=== PATIENT | female | born 2000 | race Caucasian/White ===

== ENCOUNTER 2019-01-02 21:55 | Inpatient (IN) | payer MEDICAID, OTHER ==
[~2019-01-02] VITALS: Ht 149.9 cm; Wt 55.3 kg
[~2019-01-02 21:55] MED LIST: CYCL10TA7 PO; GUAI5SYR2 PO; IBUP-1541 PO; IBUP-1542 PO
[2019-01-02 22:39] VITALS: Ht 149.9 cm; Wt 55.3 kg
[2019-01-02] MEDS ORDERED: ONDANSETRON 4 MG INJ IV STA (23:01)
[2019-01-02] MEDS ORDERED: HYDROmorphONE 0.5 MG/0.5 ML SYG IV STA (23:01)
[2019-01-02] MEDS ORDERED: SOD CHLORIDE 0.9% 500 ML IV STA (23:01)
--- NOTE | 2019-01-02 23:14 | ERD ---
ER Documentation Chief Complaint Chief Complaint Pt reports pain in waves every 5 minutes, 2 pads per hour dizziness +preg HPI 18-year-old female with EGA 17 weeks by LMP 09/07/2019, presents to the emergency department, complaining of 3 days with worsening of vaginal bleeding, associated with cramping, colicky pelvic pain every 5 minutes. ROS All systems reviewed and are negative except as per history of present illness. Medications Home Meds Active Scripts Ibuprofen* (Ibuprofen*) 400 Mg Tablet, 400 MG PO Q6H PRN for PAIN for 4 Days, TAB Prov:KATHARINE SHAH NP 08/29/15 Guaifenesin-Dextromethorphan* (Robitussin* DM) 100MG/10MG/5ML Syrup, 10 ML PO Q4H PRN for COUGH for 3 Days, ML Prov:KATHARINE SHAH NP 08/29/15 Ibuprofen* (Ibuprofen*) 600 Mg Tablet, 600 MG PO Q6 for PAIN, #30 TAB Prov:LANG PIMENTEL PA-C 04/22/15 Cyclobenzaprine Hcl* (Cyclobenzaprine Hcl*) 10 Mg Tablet, 10 MG PO TID PRN for MUSCLE SPASMS, #30 TAB Prov:LANG PIMENTEL PA-C 04/22/15 Allergies Allergies: Coded Allergies: No Known Allergy (Unverified , 10/31/15) PMhx/Soc Medical and Surgical Hx: pt denies Medical Hx, pt denies Surgical Hx History of Surgery: No Anesthesia Reaction: No Hx Neurological Disorder: No Hx Respiratory Disorders: No Hx Cardiac Disorders: No Hx Psychiatric Problems: No Hx Miscellaneous Medical Probl: No Hx Alcohol Use: No Hx Substance Use: No Hx Tobacco Use: No Smoking Status: Never smoker Physical Exam Vitals Vital Signs Date Temp Pulse Resp B/P (MAP) Pulse Ox O2 O2 Flow FiO2 Time Delivery Rate 01/02/19 98.3 86 32 95/55 (68) 96 22:39 Physical Exam Patient alert, oriented, in distress due to pain vital signs stable. HEENT: Normocephalic, atraumatic. EYES: PERRLA, EOMI, Sclera and conjunctiva appear normal. EARS: Canals clear, tympanic membranes WNL. THROAT: Normal oropharynx. NECK: Supple, No lymphadenopathy. Full ROM without pain or tenderness. HEART: RRR, no rubs, murmurs, clicks or gallops. LUNGS: Clear to auscultation. ABDOMEN: Soft, uterus gravid. : Os 2 cm, with active moderate vaginal bleeding. EXTREMITIES: No edema bilaterally. BACK: Full ROM, no deformity, normal back exam NEURO: Cranial nerves grossly intact, no motor or sensory deficit SKIN: No rashes, no petechia. Result Diagram: 01/02/19 5760 Results 24 hrs Laboratory Tests Test 01/02/19 23:20 White Blood Count 20.0 10^3/ul Red Blood Count 3.37 10^6/ul Hemoglobin 10.5 g/dl Hematocrit 30.4 % Mean Corpuscular Volume 90.2 fl Mean Corpuscular Hemoglobin 31.2 pg Mean Corpuscular Hemoglobin Concent 34.5 g/dl Red Cell Distribution Width 13.2 % Platelet Count 332 10^3/UL Mean Platelet Volume 9.5 fl Immature Granulocytes % 1.000 % Neutrophils % 87.3 % Lymphocytes % 5.8 % Monocytes % 5.5 % Eosinophils % 0.1 % Basophils % 0.3 % Nucleated Red Blood Cells % 0.0 /100WBC Immature Granulocytes # 0.200 10^3/ul Neutrophils # 17.4 10^3/ul Lymphocytes # 1.2 10^3/ul Monocytes # 1.1 10^3/ul Eosinophils # 0.0 10^3/ul Basophils # 0.1 10^3/ul Nucleated Red Blood Cells # 0.0 10^3/ul Current Medications Medications Dose Sig/Dennis Start Time Status Last (Trade) Ordered Route PRN Stop Time Admin Dose Reason Admin Sodium 500 ml @ Q1H STAT 01/02/19 01/02/19 Chloride 500 mls/hr IV 23:01 01/03/19 23:20 00:00 0.5 mg ONCE STAT 01/02/19 DC 01/02/19 Hydromorphone IV 23:01 01/02/19 23:20 HCl 23:08 (Dilaudid) Ondansetron 4 mg ONCE STAT 01/02/19 DC 01/02/19 HCl (Zofran IV 23:01 01/02/19 23:20 Inj) 23:08 Procedures/MDM Vital signs stable, Physical exam unremarkable. Differential diagnosis include but not limited to: UTI, threatening , incomplete versus complete , ectopic , placenta previa, placental abruption. Physical examination and clinical presentation most likely consistent with inevitable at 17 weeks. During the ED course the patient remained hemodynamically stable. Results and clinical impression discussed with patient who agrees with management. The patient is stable to be transferred to OB triage for evaluation. Dr. Baldwin kindly accepted the consult. The patient was instructed regarding the outcomes and the potential complications like severe bleeding and . Disclaimer: Inadvertent spelling and grammatical errors are likely due to EHR/dictation software use and do not reflect on the overall quality of patient care. Also, please note that the electronic time recorded on this note does not necessarily reflect the actual time of the patient encounter. Departure Diagnosis: Primary Impression: , inevitable Additional Impression: with 17 completed weeks gestation Condition: Stable RASHID GAMING MD Jan 02, 2019 23:11
[2019-01-03] MEDS ORDERED: OXYTOCIN 30 UNITS/LR 500 ML IV PRN (00:30)
[2019-01-03] MEDS ORDERED: OXYTOCIN 30 UNITS/LR 500 ML IV SCH ×2 (00:30)
[2019-01-03] MEDS ORDERED: MISOPROSTOL 200 MCG TAB PR PRN (00:30)
[2019-01-03] MEDS ORDERED: IBUPROFEN 600 MG TAB PO PRN (00:30)
[2019-01-03] MEDS ORDERED: METHYLERGONOVINE 0.2 MG INJ IM PRN (00:30)
[2019-01-03] MEDS ORDERED: LIDOCAINE 1% (MPF) 30 ML INJ INJ PRN (00:30)
[2019-01-03] MEDS ORDERED: CARBOPROST 250 MCG INJ IM PRN (00:30)
[2019-01-03] MEDS ORDERED: BUTORPHANOL 2 MG INJ IV ONE (00:30)
[2019-01-03] MEDS: LACTATED RINGER'S 1,000 ML IV SCH ×2 (00:44→05:48)
--- NOTE | 2019-01-03 00:59 | PREAC ---
Date/Time of Note Date/Time of Note DATE: 01/03/19 TIME: 00:58 Anesthesia Eval and Record Evaluation Time Pre-Procedure Interview DATE: 01/03/19 TIME: 00:58 Age 18 Sex female NPO: 8 hrs Preoperative diagnosis labor pain Planned procedure labor epidural Past Medical History Past Medical History: None Surgery & Anesthesia Issues No known issue Meds Anticoagulation: No Beta Gisella within 24 hr: No Reason Beta Gisella not given: Pt. not on B-Gisella Active Scripts Ibuprofen* (Ibuprofen*) 400 Mg Tablet, 400 MG PO Q6H PRN for PAIN for 4 Days, TAB Prov:KATHARINE SHAH ACTIVITY THERAPY TEACHER 08/29/15 Guaifenesin-Dextromethorphan* (Robitussin* DM) 100MG/10MG/5ML Syrup, 10 ML PO Q4H PRN for COUGH for 3 Days, ML Prov:KATHARINE SHAH [employer]IV[employer] THERAPY TEACHER 08/29/15 Ibuprofen* (Ibuprofen*) 600 Mg Tablet, 600 MG PO Q6 for PAIN, #30 TAB Prov:LANG PIMENTEL PA-C 04/22/15 Cyclobenzaprine Hcl* (Cyclobenzaprine Hcl*) 10 Mg Tablet, 10 MG PO TID PRN for MUSCLE SPASMS, #30 TAB Prov:LANG PIMENTEL PA-C 04/22/15 Current Medications Lactated Ringer's 1,000 ml @ 125 mls/hr Q8H IV Last administered on 01/03/19at 00:44; Admin Dose 125 MLS/HR; Start 01/03/19 at 00:07 Lidocaine (Xylocaine 1% (Mpf)) 30 ml ONCE PRN INJ .EPISIOTOMY; Start 01/03/19 at 00:30 Oxytocin/Lactated Ringer's 500 ml @ 500 mls/hr ONCE POST IV ; Start 01/03/19 at 00:30 Oxytocin/Lactated Ringer's 500 ml @ 125 mls/hr POST IV ; Start 01/03/19 at 00:30 Ibuprofen (Motrin) 600 mg ONCE PRN PO .PAIN 1-5; Start 01/03/19 at 00:30 Oxytocin/Lactated Ringer's 500 ml @ 0 mls/hr ONCE PRN IV .VAGINAL BLEEDING; Start 01/03/19 at 00:30 Methylergonovine Maleate (Methergine) 0.2 mg ONCE PRN IM .VAGINAL BLEEDING; Start 01/03/19 at 00:30 Carboprost Tromethamine (Hemabate) 250 mcg ONCE PRN IM .VAGINAL BLEEDING; Start 01/03/19 at 00:30 Misoprostol (Cytotec) 1,000 mcg ONCE PRN MN .VAGINAL BLEEDING; Start 01/03/19 at 00:30 Meds reviewed: Yes Allergies Coded Allergies: No Known Allergy (Unverified , 10/31/15) Allergies Reviewed: Yes Labs/Studies Labs Reviewed: Reviewed by anesthesiologist Result Diagram: 01/02/19 2320 01/02/19 2325 Laboratory Tests 01/02/19 23:20 01/02/19 23:25 Blood Bank Test 01/02/19 23:41 Antibody Screen NEGATIVE Blood Type O POSITIVE test: Positive Pre-procedure Exam Last vitals Vital Signs Date Temp Pulse Resp B/P (MAP) Pulse Ox O2 O2 Flow FiO2 Time Delivery Rate 01/02/19 98.3 86 32 95/55 (68) 96 22:39 Airway: Adequate mouth opening, Adequate thyromental dist Mallampati: Mallampati III Teeth: Normal Lung: Normal Heart: Normal ASA Physical Status ASA physical status: 2 Emergency: None Planned Anesthetic Neuraxial: Epidural Planned Pain Management Epidural, Parenteral pain med, Other neuraxial med Pre-operative Attestations Prior to commencing anesthesia and surgery, the patient was re-evaluated, there was verification of: *The patient's identity *The results of appropriate recent lab work and preoperative vital signs *The above evaluation not changing prior to induction *Anesthetic plan, risk benefits, alternative and complications discussed with patient/family; questions answered; patient/family understands, accepts and wishes to proceed. MARQUISE ROBLES MD Jan 03, 2019 00:59
[2019-01-03] MEDS ORDERED: HYDROmorphONE 0.5 MG/0.5 ML SYG IV PRN ×2 (01:00)
[2019-01-03] MEDS ORDERED: ZOLPIDEM 5 MG TAB PO PRN (01:00)
[2019-01-03] MEDS ORDERED: ONDANSETRON 4 MG INJ IV PRN (01:00)
[2019-01-03] MEDS ORDERED: FENTAnyl 2MCG/ML-ROPIV 0.2% 100 ML BAG EPI SCH (01:00)
[2019-01-03] MEDS ORDERED: NALOXONE (0.4 MG/ML) INJ IV PRN (01:00)
[2019-01-03] MEDS ORDERED: KETOROLAC 30 MG INJ IV PRN (01:00)
[2019-01-03] MEDS ORDERED: DIPHENHYDRAMINE 50 MG INJ IV PRN (01:00)
--- NOTE | 2019-01-03 02:02 | HP ---
Date/Time of Note Date/Time of Note DATE: 01/03/19 TIME: 01:56 OB - History Hx of Present Free Text/Dictation 18 y.o. A1 with an IUP at 16w 4d with an inevitable with bleeding and an open cervix. Pt reports bleeding off and on over the last month but had more bleeding and sharp pain just today a few hours before presenting. She has care through a doctor affiliated with [facility]. Estimated Due Date: Jun 16, 2019 : 2 Para: 0 Spontaneous : 1 Care: Good Care Obstetrical Complications: None Medical Complications: None Other Concerns: PMHx: none. PSHx: D and C for prior SAB at 12 weeks. Past Family/Social History * Past Medical, Surgical, Family and Obstetric Histories reviewed from chart. Blood Type: O+ Rubella: unknown RPR/VDRL: Unknown GBS Status: Unknown HBsAG: Unknown OB Admission Exam Vital Signs Vital Signs Vital Signs Date Temp Pulse Resp B/P (MAP) Pulse Ox O2 O2 Flow FiO2 Time Delivery Rate 01/02/19 98.3 86 32 95/55 (68) 96 22:39 Physical Exam HEENT: WNL Heart: Rhythm Normal Lungs: Clear Abdomen: WNL Extremities: Normal Reflexes: Normal Cervical Dilatation: 6cm Effacement: 100% Station: -1 Membranes: Intact Amniotic Fluid: Clear Heart Rate: 150's (viable on US) Contractions on Admission: < 5 Minutes Apart Intensity: Moderate Last 72 hours Lab Results CBC & BMP 01/02/19 23:20 01/02/19 23:25 OB Assessment/Plan Other Assessment: Inevitable at 16 weeks. Plan: Expectant Management Other plan: Pain meds as needed. JERICA DANIEL MD Jan 03, 2019 02:01
--- NOTE | 2019-01-03 02:07 | LDN ---
Date/Time of Note Date/Time of Note DATE: 01/03/19 TIME: 02:02 Delivery Summary Pt delivered a non-viable demised fetus c/w 16 by dates completely intact with the complete sac and placenta and immediately felt better and had minimal bleeding. Weeks of Gestation 16w 4d Placenta Delivered: Spontaneously Perineal laceration: 0 Estimated blood loss: 50 Any foreign bodies felt in the: No (vagina) Delivery Information Sex Infant Sex: ambiguous Apgars 1 Minute: 0 5 Minute: 0 Suctioning Nose & mouth suctioned at natan: No Delee suction performed: No Umbilical Cord Cord Blood was obtained: No Mother & Baby Disposition Disposition Will keep mom until the morning to observe for bleeding and then will d/c home. Mom & Baby to Maternity; Good: No Baby to NICU: No JERICA DANIEL MD Jan 03, 2019 02:07
[2019-01-03 09:30] VITALS: BP 105/58; PULSE 74; RESP 18
--- NOTE | 2019-01-04 07:26 | PAC ---
Date/Time of Note Date/Time of Note DATE: 01/04/19 TIME: 07:25 Post-Anesthesia Notes Post-Anesthesia Note Activity: WNL Respiratory function: WNL Cardiovascular function: WNL Mental status: Baseline Pain reasonably controlled: Yes Hydration appropriate: Yes Nausea/Vomiting absent: Yes MARQUISE ROBLES MD Jan 04, 2019 07:26
--- NOTE | 2019-01-04 07:27 | PREAC ---
Date/Time of Note Date/Time of Note DATE: 01/04/19 TIME: : Anesthesia Eval and Record Evaluation Time Pre-Procedure Interview DATE: 01/02/19 TIME: : Age 18 Sex female NPO: 8 hrs Preoperative diagnosis labor pain Planned procedure labor epidural Past Medical History Past Medical History: None Surgery & Anesthesia Issues No known issue Meds Anticoagulation: No Beta Gisella within 24 hr: No Reason Beta Gisella not given: Pt. not on B-Gisella Discontinued Scripts Ibuprofen* (Ibuprofen*) 400 Mg Tablet, 400 MG PO Q6H PRN for PAIN for 4 Days, TAB Prov:KATHARINE SHAH [employer]UCTURAL SHOP HELPER 08/29/15 Guaifenesin-Dextromethorphan* (Robitussin* DM) 100MG/10MG/5ML Syrup, 10 ML PO Q4H PRN for COUGH for 3 Days, ML Prov:KATHARINE SHAH [employer]UCTURAL SHOP HELPER 08/29/15 Ibuprofen* (Ibuprofen*) 600 Mg Tablet, 600 MG PO Q6 for PAIN, #30 TAB Prov:LANG PIMENTEL PA-C 04/22/15 Cyclobenzaprine Hcl* (Cyclobenzaprine Hcl*) 10 Mg Tablet, 10 MG PO TID PRN for MUSCLE SPASMS, #30 TAB Prov:LANG PIMENTEL PA-C 04/22/15 Meds reviewed: Yes Allergies Coded Allergies: No Known Allergy (Unverified , 10/31/15) Allergies Reviewed: Yes Labs/Studies Labs Reviewed: Reviewed by anesthesiologist test: Positive Pre-procedure Exam Airway: Adequate mouth opening, Adequate thyromental dist Mallampati: Mallampati III Teeth: Normal Lung: Normal Heart: Normal ASA Physical Status ASA physical status: 2 Emergency: None Planned Anesthetic Neuraxial: Epidural Planned Pain Management Epidural, Parenteral pain med Pre-operative Attestations Prior to commencing anesthesia and surgery, the patient was re-evaluated, there was verification of: *The patient's identity *The results of appropriate recent lab work and preoperative vital signs *The above evaluation not changing prior to induction *Anesthetic plan, risk benefits, alternative and complications discussed with patient/family; questions answered; patient/family understands, accepts and wishes to proceed. MARQUISE ROBLES MD Jan 04, 2019 07:27
== END 2019-01-03 09:51 | disposition home or self-care (01) | DRG 779 ==
LOC: FTE 21:55 → L-D 01-03 00:09
PROVIDERS: ADMIT Obstetrics & Gynecology; ATTEND Obstetrics & Gynecology
PROC: 10D17Z9 Manual Extraction of Products of Conception, Retained, Via Natural or Artificial Opening (ICD-10-PCS; principal; 2019-01-03)
DX: O02.1 Missed abortion (principal)
CPT/HCPCS: 36415; 76805; 80048; 80307; 81001; 85025; 85610; 85730; 86850; 86900; 86901; 88309; 96374; 96375; J0595; J1170; J1885; J2405; J7040; J7120